=== PATIENT | female | born 1950 | race African-American/Black ===

== ENCOUNTER 2021-04-20 22:16 | Inpatient (IN) ==
[2021-04-20] MEDS ORDERED: FUROSEMIDE 100 MG/10 ML VIAL IV STA (22:44)
[2021-04-20] MEDS ORDERED: ONDANSETRON 4 MG/2 ML VIAL IV STA (22:44)
[2021-04-20] MEDS ORDERED: methylPREDNISolone SOD SUC 125 MG/2 ML VIAL IV STA (22:44)
[2021-04-20] MEDS ORDERED: ALBUTEROL NEB SOLN 5 MG/ML 20 ML/BOTTLE CONT NEB SCH (23:00)
[2021-04-20 23:20] LABS: Basophils % 0.5 % (0.0-0.8); Eosinophils # 0.1 10*3/uL (0.0-0.87); Eosinophils % 1.5 % (0.00-10.9); Hematocrit 38.6 VOL% (35.7-47.0); Hemoglobin 11.9 GM/DL (12.0-16.0); Immature Granulocytes % 0.5 %; Immature Granulocytes Absolute 0.04 #; Lymphocytes # 1.4 10*3/uL (1.4-4.0); Lymphocytes % 18.1 % (21.3-54.2); Mean Corpuscular HGB Conc 30.8 GM/DL (32-36); Mean Corpuscular Volume 98.5 FL (87-102); Mean Platelet Volume 10.6 FL (9.6-12.0); Monocytes % 5.6 % (1.7-12.7); Neutrophils % 73.8 % (38.7-73.9); Platelet Count 251 T/CUMM (130-400); Red Blood Count 3.92 MC/CUMM (3.8-5.5); Red Cell Distribution Width 14.9 % (9.3-17.3); White Blood Count 7.8 T/CUMM (4-12)
[2021-04-20 23:21] LABS: ABG Base Excess 3.6 MMOL/L (-2.5-2.5); ABG HCO3 27.5 MMOL/L (20-26); ABG Oxygen Saturation 92.2 % (95-100); ABG PCO2 55.9 MM HG (35-48); ABG PH 7.347 (7.35-7.45); ABG PO2 74.3 MM HG (80-95); ABG TCO2 27.4 MMOL/L (23-27); Allen Test Positive
[2021-04-20 23:32] LABS: PT Patient Result 11.5 SECS (10.5-12.0)
[2021-04-20 23:35] LABS: Albumin 3.2 G/DL (3.4-5.0); Bilirubin,Total 0.7 MG/DL (0.20-1.00); Calcium 9.1 MG/DL (8.5-10.1); Osmolality,Calculated 279.4 MOS/KG (273-304); Potassium 4.2 MMOL/L (3.5-5.1)
[2021-04-20] MEDS ORDERED: ENOXAPARIN 100 MG/ML SYRINGE SUBCUT STA (23:57)
[2021-04-20] MEDS ORDERED: ENOXAPARIN 120 MG/0.8 ML SYRINGE SUBCUT STA (23:58)
[2021-04-21] MEDS ORDERED: busPIRone 10 MG TABLET ONE (00:43)
[2021-04-21] MEDS ORDERED: busPIRone 10 MG TABLET PO ONE (00:48)
[2021-04-21] MEDS ORDERED: GLUCAGON 1 MG VIAL IM PRN (01:33)
[2021-04-21] MEDS ORDERED: hydrALAZINE 20 MG/1 ML VIAL IV PRN (01:33)
[2021-04-21] MEDS ORDERED: ONDANSETRON 4 MG/2 ML VIAL IV PRN (01:33)
[2021-04-21] MEDS ORDERED: ACETAMINOPHEN 325 MG TABLET PO PRN (01:33)
[2021-04-21] MEDS ORDERED: DEXTROSE 10% 250 ML BAG IV PRN (01:33)
[2021-04-21 02:08] LABS: ABG Base Excess 1.5 MMOL/L (-2.5-2.5); ABG HCO3 29.2 MMOL/L (20-26); ABG Oxygen Saturation 86.7 % (95-100); ABG PCO2 60.8 MM HG (35-48); ABG TCO2 31.1 MMOL/L (23-27)
[2021-04-21] MEDS: cefTRIAXone 1,000 MG in SODIUM CHLORIDE 0.9% 100 ML IV SCH (02:43)
[2021-04-21] MEDS: AZITHROMYCIN INJ 500 MG in SODIUM CHLORIDE 0.9% 250 ML IV SCH (04:08)
[2021-04-21 05:21] LABS: Basophils % 0.1 % (0.0-0.8); Hematocrit 40.6 VOL% (35.7-47.0); Hemoglobin 12.3 GM/DL (12.0-16.0); Immature Granulocytes % 0.6 %; Immature Granulocytes Absolute 0.05 #; Lymphocytes # 0.4 10*3/uL (1.4-4.0); Lymphocytes % 4.8 % (21.3-54.2); Mean Corpuscular HGB Conc 30.3 GM/DL (32-36); Mean Corpuscular Volume 98.3 FL (87-102); Mean Platelet Volume 10.2 FL (9.6-12.0); Monocytes % 0.9 % (1.7-12.7); Neutrophils % 93.6 % (38.7-73.9); Platelet Count 250 T/CUMM (130-400); Red Blood Count 4.13 MC/CUMM (3.8-5.5); Red Cell Distribution Width 14.8 % (9.3-17.3)
[2021-04-21] MEDS: methylPREDNISolone SOD SUC 40 MG/1 ML VIAL IV SCH ×3 (05:37→21:03)
[2021-04-21 05:43] LABS: Calcium 8.7 MG/DL (8.5-10.1); Osmolality,Calculated 280.4 MOS/KG (273-304); Risk Ratio 2.52; Thyroid Stimulating Hormone 0.591 uIU/ml (0.358-3.74)
[2021-04-21 05:50] LABS: Hypochromia 1+; Lymphocytes 4 % (20-55); Microcytosis 1+; Ovalocytes Few; Segmented Neutrophils 95 % (50-85); Target Cells Slight; Total Cells Counted 100
[2021-04-21 05:51] LABS: Platelet Estimate Normal
[2021-04-21 07:16] LABS: ABG Base Excess 2.3 MMOL/L (-2.5-2.5); ABG HCO3 26.1 MMOL/L (20-26); ABG Oxygen Saturation 79.3 % (95-100); ABG PCO2 66.4 MM HG (35-48); ABG PO2 53.3 MM HG (80-95); ABG TCO2 28.1 MMOL/L (23-27)
[2021-04-21] MEDS: FUROSEMIDE 40 MG/4 ML VIAL IV SCH ×2 (09:55→16:49)
[2021-04-21] MEDS: ALBUTEROL/IPRATROPIUM 3 ML NEB RESP TX SCH ×3 (10:00→19:38)
[2021-04-21] MEDS: PANTOPRAZOLE 40 MG TABLET PO SCH (11:37)
[2021-04-21 13:54] LABS: ABG Base Excess 4.1 MMOL/L (-2.5-2.5); ABG HCO3 27.9 MMOL/L (20-26); ABG Oxygen Saturation 90.4 % (95-100); ABG PCO2 68.4 MM HG (35-48); ABG PH 7.292 (7.35-7.45); ABG PO2 65.8 MM HG (80-95); ABG TCO2 29.7 MMOL/L (23-27)
[2021-04-21] MEDS ORDERED: traZODone 50 MG TABLET PO PRN (14:31)
[2021-04-21 16:17] LABS: ABG Base Excess 5.6 MMOL/L (-2.5-2.5); ABG HCO3 29.1 MMOL/L (20-26); ABG Oxygen Saturation 82.6 % (95-100); ABG PCO2 55.1 MM HG (35-48); ABG PH 7.377 (7.35-7.45); ABG PO2 48.2 MM HG (80-95); ABG TCO2 28.7 MMOL/L (23-27)
[2021-04-21] MEDS ORDERED: SIMVASTATIN 80 MG TABLET PO SCH (21:00)
[2021-04-22] MEDS: ALBUTEROL/IPRATROPIUM 3 ML NEB RESP TX SCH ×2 (00:15→07:05)
[2021-04-22] MEDS: cefTRIAXone 1,000 MG in SODIUM CHLORIDE 0.9% 100 ML IV SCH (02:22)
[2021-04-22] MEDS: AZITHROMYCIN INJ 500 MG in SODIUM CHLORIDE 0.9% 250 ML IV SCH (04:13)
[2021-04-22 05:26] VITALS: BP 151/93
[2021-04-22] MEDS: methylPREDNISolone SOD SUC 40 MG/1 ML VIAL IV SCH (06:01)
[2021-04-22 06:03] LABS: Calcium 9.1 MG/DL (8.5-10.1); Potassium 4.3 MMOL/L (3.5-5.1)
[2021-04-22 06:17] LABS: Osmolality,Calculated 277.7 MOS/KG (273-304)
[2021-04-22 06:19] LABS: Hematocrit 39.6 VOL% (35.7-47.0); Hemoglobin 11.9 GM/DL (12.0-16.0); Immature Granulocytes % 0.5 %; Immature Granulocytes Absolute 0.04 #; Lymphocytes # 0.4 10*3/uL (1.4-4.0); Lymphocytes % 4.5 % (21.3-54.2); Mean Corpuscular HGB Conc 30.1 GM/DL (32-36); Mean Corpuscular Volume 99.7 FL (87-102); Mean Platelet Volume 10.7 FL (9.6-12.0); Monocytes % 4.8 % (1.7-12.7); Neutrophils % 90.2 % (38.7-73.9); Platelet Count 222 T/CUMM (130-400); Red Blood Count 3.97 MC/CUMM (3.8-5.5); Red Cell Distribution Width 14.6 % (9.3-17.3); White Blood Count 8.4 T/CUMM (4-12)
[2021-04-22 07:52] LABS: Hypochromia 1+; Lymphocytes 5 % (20-55); Microcytosis 1+; Platelet Estimate Adequate; Segmented Neutrophils 93 % (50-85); Total Cells Counted 100
[2021-04-22] MEDS ORDERED: amLODIPine 5 MG TABLET PO SCH (09:00)
[2021-04-22] MEDS ORDERED: EZETIMIBE 10 MG TABLET PO SCH (09:00)
[2021-04-22] MEDS ORDERED: ASPIRIN EC 81 MG TABLET PO SCH (09:00)
[2021-04-22] MEDS: FUROSEMIDE 40 MG/4 ML VIAL IV SCH (09:38)
[2021-04-22] MEDS: PANTOPRAZOLE 40 MG TABLET PO SCH (09:38)
[2021-04-22] MEDS ORDERED: amLODIPine 5 MG TABLET PO ONE (11:15)
[2021-04-22] MEDS ORDERED: CEFUROXIME 500 MG TABLET PO SCH (21:00)
[2021-04-23] MEDS ORDERED: predniSONE 20 MG TABLET PO SCH (09:00)
[2021-04-23] MEDS ORDERED: AZITHROMYCIN 250 MG TABLET PO SCH (09:00)
[2021-04-23] MEDS ORDERED: amLODIPine 5 MG TABLET PO SCH (09:00)
== END 2021-04-22 13:10 | disposition home or self-care (01) | DRG 189 ==
LOC: N.ED 22:16 → N.EDINP 04-21 01:33 → N.TELEN 04-21 03:19
PROVIDERS: ADMIT Internal Medicine; ATTEND Internal Medicine